=== PATIENT | female | born 1945 | race Caucasian/White ===

== ENCOUNTER 2018-02-05 10:43 | Emergency (ER) | payer MEDICAID | END 2018-02-05 13:42 | disposition home or self-care (01) | LOC: E/R 10:43 | DX: E11.649 Type 2 diabetes mellitus with hypoglycemia without coma (principal); I10 Essential (primary) hypertension; R42 Dizziness and giddiness; Z79.84 Long term (current) use of oral hypoglycemic drugs | CPT/HCPCS: 82962; 93005; 99283-25 ==